=== PATIENT | male | born 1940 | race Native Hawaiian/Other Pacific Islander ===

== ENCOUNTER 2017-05-20 11:15 | Outpatient (CLI) | payer OTHER, BC ==
[~2017-05-20 11:15] MED LIST: ALLEGRA ALRG180 M1 PO; AMOX500C85 PO; BISO5TAB2 PO; GLIP10TA55 PO; GLIP10TA66 PO; NABU750T PO; RANI150T78 PO; WELCHOL625 MG OR
== END 2017-05-20 19:00 | disposition home or self-care (01) ==
LOC: RAD 11:15
DX: M54.2 Cervicalgia (principal)

== ENCOUNTER 2020-06-11 15:22 | Emergency (ER) | payer OTHER, BC ==
[~2020-06-11] VITALS: Ht 195.6 cm; Wt 111.1 kg
[2020-06-11 23:17] VITALS: BP 145/82; TEMP 99
== END 2020-06-11 23:23 | disposition still patient (30) ==
LOC: ED 15:22
DX: S72.092A Other fracture of head and neck of left femur, initial encounter for closed fracture (principal); W10.8XXA Fall (on) (from) other stairs and steps, initial encounter; Y92.89 Other specified places as the place of occurrence of the external cause
CPT/HCPCS: 96372; 96374; 96375; 99285; J1885; J2175; J2270; J2550

== ENCOUNTER 2020-12-04 13:12 | Outpatient (CLI) | payer BC | END 2020-12-04 22:18 | disposition home or self-care (01) | LOC: LAB 13:12 | PROVIDERS: ATTEND Internal Medicine | DX: L60.0 Ingrowing nail (principal) | CPT/HCPCS: 87070; 87205 ==

== ENCOUNTER 2021-01-03 08:38 | Outpatient (CLI) | payer BC ==
[2021-01-03 08:56] LABS: PLATELET COUNT 241 K/uL (142-355)
== END 2021-01-03 21:15 | disposition home or self-care (01) ==
LOC: LABW 08:38
PROVIDERS: ATTEND Internal Medicine
DX: D64.89 Other specified anemias (principal)
CPT/HCPCS: 36415; 85027